=== PATIENT | male | born 1955 | race Caucasian/White ===

== ENCOUNTER 2017-03-05 15:56 | Emergency (ER) | payer OTHER, BC ==
[~2017-03-05] VITALS: Ht 185.4 cm; Wt 93.0 kg
[2017-03-05 15:56] VITALS: BP 117/74
[2017-03-05] MEDS ORDERED: CIPROFLOXACIN HCL 500 MG TABLET ONE (16:06)
[2017-03-05] MEDS ORDERED: CIPROFLOXACIN HCL 500 MG TABLET PO ONE (16:30)
== END 2017-03-05 16:15 | disposition home or self-care (01) ==
LOC: ER 15:58
DX: Z20.811 Contact with and (suspected) exposure to meningococcus (principal); Z90.89 Acquired absence of other organs
CPT/HCPCS: A4606; Z7610